=== PATIENT | female | born 1955 ===

== ENCOUNTER → 2019-06-26 12:53 | Outpatient (CLI) | payer OTHER, MEDICAID, SELFPAY ==
--- NOTE | 2019-06-26 | DI.CT.S_ITS ---
PROCEDURE: CT KIDNEY URETER BLADDER (KUB) INDICATIONS: Calculus of kidney TECHNIQUE: Noncontrast 5 mm thick sections acquired from the diaphragms to the symphysis. 5 mm thick coronal and sagittal reformats were then performed. For radiation dose reduction, the following was used: automated exposure control, adjustment of mA and/or kV according to patient size. COMPARISON: [facility], CT, CT KUB, 05/18/2019, 19:55. [facility], CT, CT KUB, 05/26/2019, 13:51. [facility], CR, XR ABDOMEN 1 VIEW, 06/08/2019, 9:02. FINDINGS: Image quality: Excellent. Lung bases: Lung bases are clear. Heart size is normal. Urinary system: Both kidneys are normal in size. No kidney stones. No hydronephrosis or perinephric fat stranding. A double pigtail left ureteral stent remains in normal position after identification of a calculus within the left ureter during CT scanning 05/18/19. Both ureters appear non-dilated throughout their expected courses. Bladder wall thickness is normal; no calcified bladder stones. Other solid organs: Liver is normal in size. Gallbladder appears normal. Pancreas is normal in contours. Spleen is normal in size. No adrenal nodules. Peritoneum and bowel: Unenhanced bowel loops demonstrate normal wall thickness and caliber. No free fluid or air. Nodes and vessels: No retroperitoneal or mesenteric adenopathy by size criteria. Aorta and inferior vena cava are normal in caliber. Abdominal wall: No ventral hernias. Pelvis: No free pelvic fluid. No inguinal hernias or adenopathy. Bones: No suspicious bony lesions. No vertebral body compression fractures. IMPRESSION: Double pigtail left ureteral stent in normal position, a calculus along the course of this stent is not identified. No residual left-sided hydronephrosis or hydroureter is present. The bladder is relatively collapsed at time of CT scanning, a definite intraluminal calculus is not suspected. Dictated by: Wm Do M.D. on 06/26/2019 at 15:31 Approved by: Wm Do M.D. on 06/26/2019 at 15:34
== END ==
PROVIDERS: PCP Family Medicine; Visit Provider Specialist
DX: N20.0 Calculus of kidney (principal); Z96.0 Presence of urogenital implants
CPT/HCPCS: 74176

== ENCOUNTER 2020-07-29 20:58 | Day surgery (SDC) | payer OTHER, MEDICAID, SELFPAY ==
[2020-07-29] VITALS (19 sets, daily range): BP systolic 90–211; BP diastolic 59–116; PULSE 63–89; RESP 10–21; TEMP 36.5–37.3; O2SAT 94–99; BMI 29.2
--- NOTE | 2020-07-29 | DI.RAD.S_ITS ---
PROCEDURE: XR HIP LT 1V INDICATIONS: LEFT HIP RELOCATION TECHNIQUE: Single fluoroscopic hip film acquired. COMPARISON: None. FINDINGS: Bones: Single C-arm film demonstrates total left hip arthroplasty, with hardware components in expected positions. The hip joint appears congruent. The visualized bony structures appear intact. Soft tissues: Unremarkable. IMPRESSION: Single C-arm image demonstrates that a total left hip arthroplasty is not currently dislocated. Dictated by: Roberto Templeton M.D. on 07/30/2020 at 6:31 Approved by: Roberto Templeton M.D. on 07/30/2020 at 6:32
--- NOTE | 2020-07-29 21:18 | P.HP_ITS ---
History of Present Illness History of Present Illness Date Patient Seen: 07/29/20 Time Patient Seen: 21:18 Date of Onset of Symptoms: 07/29/20 Chief complaint: HIP DISLOCATION Narrative: Patient is a 64-year-old woman who had a left total hip replacement 7 years ago by my partner Dr. Kae Pena. She has done well with the hip although she is having increasing knee pain that is leading to giving way of her knees. She had an episode of giving way today and fell suffering a dislocation of the left hip. She was taken to [facility] emergency room where closed reduction was attempted by the emergency room physician. This was unsuccessful. She has been transferred [facility] for my evaluation and treatment for closed reduction under anesthetic. Patient History Medical History (Updated 07/29/20 @ 21:23 by Sascha Henderson MD) Hernia of abdominal wall Surgical History (Updated 07/29/20 @ 21:23 by Sascha Henderson MD) H/O thyroidectomy Hip joint replacement status History of herniorrhaphy History of renal stent Family & Social History Social History: The patient lives alone in [facility] and a recreational vehicle. Tobacco & Substance use: The patient denies tobacco and alcohol use. She does use CBD oil occasionally. Meds Home Medications and Allergies Allergies Allergy/AdvReac Type Severity Reaction Status Date / Time From AMARYL Allergy Severe RASH, Uncoded 09/04/17 11:59 VOMITING METFORMIN Allergy Unknown PROJECTILE Uncoded 09/04/17 11:59 VOMITTING Review of Systems Review of Systems ROS: Yes All systems reviewed with the patient and are negative except as otherwise documented Exam Narrative Exam Narrative: The patient is an obese female lying in her hospital [facility] in obvious discomfort. HEENT examination is normocephalic atraumatic. Chest is clear to auscultation. Cardiac exam is regular rate and rhythm S1-S2 normal no rubs murmurs or gallops. Abdomen is soft diffusely tender with no palpable masses and normal bowel sounds. Extremities examination is notable for the left lower extremity which is held in a flexed position at the hip. There is pain with any motion. Light touch is intact throughout the foot on the left and she has a 2+ dorsalis pedis pulse. Objective Imaging AP pelvis and lateral left hip: My impression: Dislocation in an anterior superior position of the left prosthetic hip. No signs of fractures. Assessment & Plan Assessment & Plan narrative: Patient is a 64-year-old woman with multiple medical problems who has had a stable hip replacement until a fall today. It is now dislocated. A trial of reduction with sedation at the emergency room and [facility] was unsuccessful. She is now at [facility] for attempted relocation by an orthopedist with the assistance of an anesthetic. She has given her permission after discussion the risks benefits and alternatives. Risks discussed included but were not limited to: Fracture, unsuccessful reduction requiring later open reduction, nerve damage, recurrence of the dislocation, and anesthetic complications including stroke, heart attack permanent paralysis and . COVID-19 COVID-19 status: Negative Result date/Date tested (Pos, Neg/Pending): 07/29/20 Time Spent With Patient Time with patient: 15-24 minutes
[2020-07-29] MEDS: LACTATED RINGERS 1,000 ML 42 ML IV (21:23)
--- NOTE | 2020-07-29 21:49 | SUR.OPER ---
Addendum entered by Lilo Torres R.N. 08/01/20 08:46: seat belt at waist Original Note: Supine on padded OR bed, head on pillow, arms secured on padded arm boards at <90 degrees abduction, legs uncrossed, safety belt at thigh, tape over blanket over lower legs.
--- NOTE | 2020-07-29 21:58 | PM.OP.1 ---
Operative Date/Time/Diagnoses Date of procedure: 07/29/20 Time of procedure: 21:58 Pre-op diagnosis: Dislocated left prosthetic hip Post-op diagnosis: same Procedure & Clinicians Procedure: Closed reduction of left prosthetic hip dislocation Same procedure as scheduled: Yes Indications: The patient is a 64-year-old woman who had a total hip replacement 7 years ago. It was stable until she had a fall today. She was unable to arise from her fall and was seen at the [facility] Emergency Room where a dislocation was verified. Attempts at closed reduction in the emergency room were unsuccessful and she was transferred [facility] for definitive management. She agreed to attempted closed reduction under anesthesia after discussion of the risks benefits and alternatives as documented in my history and physical. Surgeon: Sascha Henderson Click Yes if Unassisted: Yes Anesthesia Type: General Operative Notes Findings: Posterior superior dislocation with difficult reduction requiring extreme internal rotation and adduction with significant traction. Closure Type: not applicable Specimen(s): none sent Prosthetic devices, grafts, tissues, transplants, or devices: None Estimated Blood Loss (mL): 0 Blood products transfused: none Procedure in detail: The patient was taken to the operating room and placed on the operating room table in the supine position after the induction of a general anesthetic on her [employer]. The left leg was identified as the dislocated side due to its shortened internally rotated position. I stood on the operating room table and flexed, internally rotated and put traction on the leg. With extensive traction and significant internal rotation and adduction a palpable reduction event occurred. The leg was then brought into extension and abduction, fluoroscopy was used to confirm concentric reduction of the hip. Leg length appeared equal and rotation was neutral after the reduction. The patient was then allowed to awaken from her general anesthetic. She was transferred to the recovery room in good condition having tolerated the procedure well. Complications: none Post-operative Condition: stable Disposition: PACU Plan for aftercare: The patient has no transportation this evening to get home. She will be maintained in the hospital overnight on observation and discharged tomorrow morning.
--- NOTE | 2020-07-29 22:08 | SUR.PHASEI ---
Pt arrived to PACU with oral airway, o2 added. Pt awoke air way out, denied pain. Tolerated ice chips
--- NOTE | 2020-07-29 22:15 | SUR.PHASEI ---
Report called to ELZA Tavarez. Pt transported up on nasal cannula 02 2/l
--- NOTE | 2020-07-29 22:31 | SUR.PHASEI ---
Pt had sudden onset of nausea and vomited 100ml yellow liquid.
--- NOTE | 2020-07-29 22:35 | SUR.PHASEI ---
BP high, Dr. Dee made aware. Labetalol ordered and administered.
[2020-07-29] MEDS: LABETALOL 20 MG/4 ML SYRINGE 10 MG IV ×2 (22:37→22:51)
[2020-07-29] MEDS: HYDRALAZINE 20 MG/ML VIAL 10 MG IV ×2 (23:07→23:21)
--- NOTE | 2020-07-29 23:14 | SUR.PHASEI ---
BP still high after 2 doses of labetalol, Dr. Dee made aware. Pt still denies pain and still with intermittent dry heaves. Hydralazine ordered and administered.
[2020-07-30] VITALS (7 sets, daily range): BP systolic 132–174; BP diastolic 80–102; PULSE 66–84; RESP 18–22; TEMP 36.6–37.3; O2SAT 90–99; BMI 29.2
--- NOTE | 2020-07-30 00:12 | SUR.PHASEI ---
BP better after hydralazine. Pt assisted to BSC to void, urine dark yellow,clear. Intermittent dry heaves persist, Dr. Dee to bedside spoke with pt. Pt transferred up to room 221 when BP under better control. Pt left with [place] and left in stable condition.
[2020-07-30 05:56] LABS: Hematocrit 36.4 % (36-46); Hemoglobin 12.1 g/dL (12.0-16.0)
[2020-07-30 06:06] LABS: Glucose 219 mg/dL (80-110)
[2020-07-30] MEDS: INSULIN ASPART 100 UNIT/ML INSULN PEN SUBCUT (09:14)
[2020-07-30] MEDS: METOPROLOL ER 50 MG TABLET 100 MG PO (09:14)
[2020-07-30] MEDS: LEVOTHYROXINE 100 MCG TABLET 250 MCG PO (09:15)
[2020-07-30] MEDS: DOCUSATE 100 MG CAPSULE PO (09:17)
[2020-07-30] MEDS: PANTOPRAZOLE 20 MG TABLET PO (09:17)
[2020-07-30] MEDS: ASPIRIN EC 81 MG TABLET PO (09:17)
--- NOTE | 2020-07-30 09:17 | PT.IIE ---
Surgery Performed Operation Date: 07/29/20 07:00 <No data on this case meets the specified criteria> Operation Date: 07/29/20 21:15 Actual Procedures p Closed Reduction Dislocated Hip(Left) - Sascha Henderson MD Surgical History (Last Updated 07/29/20 @ 21:23 by Sascha Henderson MD) H/O thyroidectomy Hip joint replacement status History of herniorrhaphy History of renal stent Medical History (Last Updated 07/29/20 @ 21:23 by Sascha Henderson MD) Hernia of abdominal wall Physical Therapy Inpatient Evaluation/Re-Eval M1 PT/OT-IP Prior Functional Status Start: 07/30/20 11:47 Freq: NEEDED Status: Active Protocol: Document 07/30/20 09:17 AB (Rec: 07/30/20 12:07 [email or web address]) Medical Review Prior Functional Status Medical History Reviewed Yes Communication able to make needs known Mobility and Gait pt stated that she is independent with all mobilities and ambulation without AD; stated that B knees are needing a replacement and tends to give out on her Prior Functional Level (Other details) pt has L SAYRA 7 year ago but had a fall and dislocated her hip. pt s/p L hip reduction after dislocation and per pt due to L knee giving out from her. Social History Household Members none Living Arrangements RV Number of Floors (Floors) One Floor Number of Stairs To Enter/Railing? 3 steps without rails pt stated that FWW will not fit inside the RV Home Environment Standard Height Toilet,Walk in Shower Home Equipment Front Wheel Walker,Straight Cane M2 PT-IP Current Condition Start: 07/30/20 11:47 Freq: NEEDED Status: Active Protocol: Document 07/30/20 09:17 AB (Rec: 07/30/20 12:07 AB [email or web address]) Physical Therapy Current Condition Current Condition Evaluation Date 07/30/20 Treatment Diagnosis s/p close reduction of L prosthetic hip dislocation; difficulty in walking Onset Date 07/29/20 Precautions Posterior Hip Precautions No Hip Flexion > 90 degrees,No Hip Internal Rotation,No Hip Adduction Weight Bearing Status Weight Bearing Status Weight Bear as Tolerated Allowed Weight Bearing Amount (enter % LLE WBAT or #) (%) M3 PT-IP Subjective Start: 07/30/20 11:47 Freq: NEEDED Status: Active Protocol: Document 07/30/20 09:17 AB (Rec: 07/30/20 12:07 AB [id number]) Subjective Physical Therapy Visit Type Type Initial Evaluation Visit Start Time 09:17 Visit Stop Time 09:54 Total Visit Minutes 37 Number of ACCOUNT SERVICES COORDINATOR Visits 0 Physical Therapy Visit Comments Patient Comments pt is agreeable to do PT Therapy Pain Assessment Pain When Pain Assessed At Rest Pain Present Pain Present Pain Reported Location l hip Intensity 5 Scale Used Numeric (0 - 10) Pain Management Techniques Distraction,Modification of Treatment,Re-positioning, Timing of Activity with Medications M4 PT-IP Mobility and Gait Start: 07/30/20 11:47 Freq: NEEDED Status: Active Protocol: Document 07/30/20 09:17 AB (Rec: 07/30/20 12:07 [email or web address]) PT-Bed Mobility Assessment Supine to Sit Supine to Sit Independent Sit to Supine Sit to Supine Standby Assistance PT-Transfer Assessment Sit to and From Stand Sit to and from Stand Contact Guard Assistance Equipment Transfer Assistive Device None,Gait Belt Orthotic/Prosthetic Devices or Brace: No Transfers Transfer Destination Chair Transfer Technique ambulated Transfer Ability Level of Assist Minimal Assistance,1 Person Assistance,Use of Upper Extremities Comments Mobility Comments educated pt on posterior hip precautions. completed supine to sit SBA. pt was able to sit on EOB SBA. completed sit to stand CGA. pt refusing to use FWW/SPC for ambulation. pt stated that FWW will not fit in the house and that terrain to get into the house is muddy and uneven and there is not way for her to use a FWW. ambulated in room without AD min A requiring PROCESS MAINTENANCE TECHNICIAN for safety and pt holding on to wall for support. pt stated that she has a lot of things to can hold on to at her house and will not need to use an AD. assessed pt with FWW and completed SBA ~ 20 ft. pt continues to refuse. assessed ambulation using SPC and completed ~ 30 ft CGA. pt is more amenable to use SPC. completed up/down platform step using SPC min A and cues. Pt requested to go back to bed . completed sit to supine SBA. positioned pt on bed. call light and table placed wtihin reach. Gait Assessment Gait Gait Assistance Required: Contact Guard Assist Distance (Feet) 30 Able to Maintain Weight Bearing Status Yes During Gait Assistive Devices Assistive Device Gait Belt,Straight Cane Orthotic/Prosthetic Devices or Brace: No Gait Deviations General Gait Pattern Antalgic,Decreased Stride Length,Decreased Feet Clearance,Step-to Gait Factors Limiting Gait Function Factors Limiting Gait Function Decreased Activity Tolerance, Decreased Strength,Limited Range of Motion,Pain,Poor Balance,Poor Safety Awareness Comments Gait Comments pls refer to mobility section for details Stair Climbing Assessment Evaluation Level of Assist On Stairs Minimal Assistance Devices Stair Climbing Assistive Devices Straight Cane Technique/Endurance Stair Climbing Direction Ascend and Descend Stair Climbing Technique Step to Step Number of Steps Climbed 1 Query Text: Stair Climbing Set # Repetitions (reps) 2 PT-Balance Assessment Sitting Balance and Reactions Static Sitting Balance Ability Good Dynamic Sitting Balance Ability Good Standing Balance and Reactions Static Standing Balance Ability Fair Dynamic Standing Balance Ability Fair Device Used using SPC M5 PT-IP Objective Assessments Start: 07/30/20 11:47 Freq: NEEDED Status: Active Protocol: Document 07/30/20 09:17 AB (Rec: 07/30/20 12:07 [email or web address]) Orientation Orientation/Cognition Level of Alertness Alert Orientation Name,Place,Situation Language Function Ability No Deficits Noted Safety Awareness Decreased Safety Awareness Memory Description Short Term Impaired Gross Range of Motion Lower Extremity ROM Assessment Within Functional Limits Strength Lower Extremity Strength Assessment Bilaterally Impaired Hip RLE: 4-/5 LLE 3+/5 Knee 3+/5 Muscle Tone Muscle Tone WNL Yes M6 PT-IP Treatment Start: 07/30/20 11:47 Freq: NEEDED Status: Active Protocol: Document 07/30/20 09:17 AB (Rec: 07/30/20 12:07 [email or web address]) Physical Therapy Treatment Exercises Exercises Heel Slides Education Education Provided Precautions,Weight Bearing Status,Post-Op Packet,Safety M7 PT-IP Assessment and Plan Start: 07/30/20 11:47 Freq: NEEDED Status: Active Protocol: Document 07/30/20 09:17 AB (Rec: 07/30/20 12:07 AB [email or web address]) PT Summary Assessment and Plan Potential Rehabilitation Potential Good Status of Condition at Evaluation Stable Summary Impairments Pain,ROM,Strength,Balance, Coordination,Sensation,Tone, Cognition,Bed Mobility, Transfers,Gait,Activity Tolerance Assessment Summary pt requiring SBA to CGA with ambulation and min A for stair climbing using SPC. pt lives alone and will not have any assistance at home. pt tends to directs her own care despite education provided regarding safety. pt refused to use FWW but agreed to use SPC. pt stated that B knees tend to give out and she is due for TKA. informed pt regarding benefits of continued PT upon d/c to LE strengthening for fall prevention and as preparation for eventual TKA. pt understood. Goals Bed Mobility Goal Independent Transfer Goal Independent,Cane Gait Goal Independent,Cane Gait Distance 150 Other Goals improve ambulation without AD 200 ft SBA up/down 3 steps SPC/without AD SBA Days to Meet Goals 5 Frequency of Treatment Frequency Of Treatment Twice a Day Treatment Plan Physical Therapy Treatment Plan Bed Mobility Training,Transfer Training,Gait Training, Therapeutic Exercise,Balance Retraining,Post Op Education, Discharge Planning,Hot or Cold Pack,Neuromuscular Re-ed, Coordination Retraining,Manual Therapy Precautions Posterior Hip Precautions No Hip Flexion > 90 degrees,No Hip Internal Rotation,No Hip Adduction Recommendations To Nursing Amount of Assist Needed 1 Person Assist Discharge Recommendations PT Discharge Recommendations Home with Assistance,Home Health Transportation Needs at Discharge Private Vehicle
[2020-07-30] MEDS: ACETAMINOPHEN 325 MG TABLET 650 MG PO (09:18)
--- NOTE | 2020-07-30 09:23 | CM.DANOTE ---
Patient is a 64 year old female who was admitted on 07/29/20 for Hip Dislocation. Pt has [employer] and [employer] for insurance and her PCP is Rito Delacruz at [facility]. EMR was reviewed. Per Saumya GORDILLO, pt had hip replacement 7 years ago and recently fell and dislocated her hip. Saumya GORDILLO was able to fix pt's hip without need for surgery and will have PT assess pt this morning with plan of d/c back home today. SW met bedside with pt and explained role and she confirms that she lives alone in [place] ([address] [place] [address]) in an RV in the [facility] but her mailing address is [place]. Pt is independent at baseline and has local supportive son Pepe in [place]. Pt confirms she is agreeable with d/c home today but does not have anyone to transport her home but does have medicaid transport benefits. SW called [employer] and confirmed pt has transportation benefits and scheduled 1230 transport via taxi home today and confirmed with Saumya GORDILLO that no new prescriptions at d/c and therefore no pharmacy stops needed. SW updated RN and pt is agreeable with d/c plan today. Plan: Patient to d/c back home to RV alone via [employer] Medicaid taxi at 1230. KARRIE Goodman Discharge Planning/Care Management CM Discharge Assessment Start: 07/30/20 09:21 Freq: Status: Active Protocol: Document 07/30/20 09:21 BF (Rec: 07/30/20 09:23 BF [id number]) Discharge Planning Assessment Assigned Motion Picture Photographer KARRIE Morris DPOA/Assigned Designee Name informally neri Cantu Contact Information [phone] Advance Directives? No Advance Directives on File No History Provided By Patient,Medical Record Has Patient been admitted in last 30 No days? Prior Living Arrangements RV Household Members none Type of transporation used prior to Medicaid Transport admit Independent with ADL's Yes Is patient alert and oriented? Yes Caregiver for Another No Barriers to Discharge No Discharge Plan Home Transportation Arrangement Pt needs [employer] Medicaid taxi for d/c Referrals Initiated None needed Whiteboard Updated in Patient Room with Yes name and ext. # of Motion Picture Photographer Review Status In Process Please Provide Date Initial DC 07/30/20 Assessment Was Performed Next Review Type Continued Stay Review
--- NOTE | 2020-07-30 09:31 | P.DS_ITS ---
History of Present Illness History of Present Illness Date Patient Seen: 07/30/20 Time Patient Seen: 09:31 Date of Onset of Symptoms: 07/29/20 Chief complaint: HIP DISLOCATION Narrative: Patient is a 64-year-old woman who had a left total hip replacement 7 years ago by my partner Dr. Kae Pena. She has done well with the hip although she is having increasing knee pain that is leading to giving way of her knees. She had an episode of giving way today and fell suffering a dislocation of the left hip. She was taken to [facility] emergency room where closed reduction was attempted by the emergency room physician. This was unsuccessful. She has been transferred [facility] for my evaluation and treatment for closed reduction under anesthetic. Discharge Providers Provider Discharge Date: 07/30/20 Primary care physician: Rito Delacruz MD Consults: 07/29/20 21:17 Consult to Anesthesiology Routine Comment: Consulting Provider: Anesthesiologist Reason for consultation: Post operative pain managment 07/29/20 21:31 Consult to Respiratory Therapy Evaluate & Treat Comment: Physician Instructions: Evaluate and treat 07/30/20 00:08 Consult to Discharge Planning Routine Comment: Consult to Discharge Planning Routine Comment: may need assistance with transport to [place] Consult to Physical Therapy Evaluate & Treat Comment: Physician Instructions: post op SAYRA protocol Consult to Respiratory Therapy Evaluate & Treat Comment: Physician Instructions: Evaluate and treat Discharge provider: Sascha Henderson MD Summary Hospital Course Discharge Diagnosis: Dislocation of left prosthetic hip Hospital Course: Patient was admitted to the operating room where she underwent a closed reduction of the left hip dislocation. This required significant traction but was atraumatic. Radiographs confirmed concentric location. It was late at night and there was no transportation available to the patient to return home so she was admitted overnight for observation. She is to see physical therapy this morning and then be discharged. Status at Discharge Cognitive/behavioral status at discharge: oriented Functional status at discharge: independent ambulation Overall status at discharge: patient is progressing back to baseline Time Spent with Patient Time spent: Less than 30 minutes Exam Vital Signs (past 8 hours): - 07/30/20 02:00 07/30/20 03:11 07/30/20 08:14 Temperature 98.4 F 99.1 F Pulse Rate 70 66 80 Respiratory Rate 19 18 22 Blood Pressure 132/82 136/85 164/102 H Pulse Oximetry 90 L 92 94 Oxygen Delivery Method Room Air Oxygen Flow Rate 0 Narrative Exam Narrative: Left leg length and rotation appear appropriate. Light touch is intact in the left foot. Dorsiflexion and plantar flexion of the toes and ankle are intact. Objective Labs Result Diagrams: 07/30/20 05:20 Labs: Laboratory Results - last 24 hr 07/30/20 07/30/20 05:20 05:20 Hgb 12.1 Hct 36.4 Glucose 219 H PFSH Medical History (Updated 07/29/20 @ 21:23 by Sascha Henderson MD) Hernia of abdominal wall Surgical History (Updated 07/29/20 @ 21:23 by Sascha Henderson MD) H/O thyroidectomy Hip joint replacement status History of herniorrhaphy History of renal stent Social History household members: none Discharge Assessment & Plan Assessment and Plan Assessment: Stable after reduction of left prosthetic hip dislocation. The patient has significant knee osteoarthritis. This will eventually require evaluation as an outpatient. Plan of Treatment: Discharge to home after a physical therapy session this morning. We have obtained a cab voucher for her to get home. Follow-up in 10-14 days as needed with Dr. Kae Pena. The patient is in minimal pain and we will expect her to treat her pain with acetaminophen. I suggested the use of 81 mg aspirin b.i.d. for DVT prophylaxis. Discharge Plan Discharge Plan Patient Disposition: Home Discharge orders & Medications Discharge Orders: Discharge (Order); Ordered 07/30/20 Ordered By: Sascha Henderson Prescriptions: New acetaminophen 325 mg Tablet 650 mg PO TID PRN (Reason: Pain) 30 Days RF: 0 aspirin 81 mg Tablet,Delayed Release (Dr/Ec) 81 mg PO BID 30 Days Qty: 60 RF: 0 Continued atorvastatin [Lipitor] 20 mg Tablet 20 mg PO BEDTIME RF: 0 metoprolol succinate 100 mg Tablet Extended Release 24 Hr 100 mg PO DAILY RF: 0 pantoprazole [Protonix] 20 mg Tablet,Delayed Release (Dr/Ec) 20 mg PO DAILY RF: 0 levothyroxine 200 mcg Tablet 250 mcg PO DAILY RF: 0 Follow up/Referrals: Rito Delacruz MD [Primary Care Provider] - Sascha Henderson MD [Physician] - 2 Weeks (Follow up with Kae Pena MD in 10-14 days if hip pain continues or call for new appointment for knees.) Diet/Activity/Treatments Diet: Diet as Tolerated and Carb-consistent/Diabetic Activity: Follow posterior hip precautions. You may bear weight as tolerated. Cold/Heat Therapy: Apply ice to the left hip for 15 minutes of every hour as needed for pain control. Visit Report/Discharge Packet Instructions: DI for Hip Replacement Stand Alone Forms: Surgery Discharge Discharge Data Primary Care Provider: Rito Delacruz Attending Provider: Sascha Henderson Quality VTE Deep Vein Thrombosis/Pulmonary Embolism Present on Admission: No
--- NOTE | 2020-07-30 12:28 | PC.NURSE ---
Pt is dressed and ready for discharge home via [employer]. Pt lives in [place]. She states she will be contacting her children to check in on her. Went over d/c instructions with Pt-discussed d/c meds, time of last dose, reviewed posterior hip precautions to prevent dislocation. Encouraged Pt to drink fluids to prevent constipation or dehydration. Pt to follow up with Dr. Henderson in 2 weeks. Pt denies further questions and will be taken out via w/c by [facility] when medicaid transport arrives.
== END 2020-07-30 14:36 | disposition home or self-care (01) ==
LOC: OR 21:19 → AC 21:54
PROVIDERS: PCP Family Medicine; Referring Provider Orthopaedic Surgery; Visit Provider Orthopaedic Surgery
PROC: (CPT 27266; principal; 2020-07-29 21:15)
DX: T84.021A Dislocation of internal left hip prosthesis, initial encounter (principal); W18.39XA Other fall on same level, initial encounter; M17.10 Unilateral primary osteoarthritis, unspecified knee; E11.9 Type 2 diabetes mellitus without complications; E03.9 Hypothyroidism, unspecified; I10 Essential (primary) hypertension; Z79.4 Long term (current) use of insulin
CPT/HCPCS: 27266; 36415; 73501; 76000; 82947; 82962; 85014; 85018; 97161; J0330; J0360; J2250; J2704; J3010

== ENCOUNTER → 2021-04-17 08:16 | Outpatient (CLI) | payer OTHER, MEDICAID, SELFPAY ==
[2020-07-30 00:40] VITALS: BMI 29.2
--- NOTE | 2021-04-17 | DI.NM.S_ITS ---
PROCEDURE: NM BONE SCAN WHOLE BODY RADIOPHARMACEUTICAL: 22 mCi Tc-99m MDP IV. INDICATIONS: Pain in left hip TECHNIQUE: Delayed whole-body scintigrams were obtained approximately 3-4 hours after intravenous injection of radiotracer. Anterior and posterior views were acquired from vertex to feet. Additional left and right oblique views of the pelvis were obtained. COMPARISON: Outside Film, CT, CT IVP, 02/14/2021, 9:23. FINDINGS: Physiologic uptake is noted within the kidneys and bladder. There is increased uptake within the shoulders, sternoclavicular joints as well as knees and feet most consistent with degenerative change. Increased uptake is scattered within the cervical, thoracic and lumbar spine. Photopenia is noted within the left hip consistent with arthroplasty. IMPRESSION: Multifocal areas of increased uptake as above suggestive of degenerative change. Dictated by: Dorene Hendrix M.D. on 04/17/2021 at 14:48 Approved by: Dorene Hendrix M.D. on 04/17/2021 at 14:50
== END ==
PROVIDERS: PCP Family Medicine; Referring Provider Orthopaedic Surgery; Visit Provider Orthopaedic Surgery
DX: M25.552 Pain in left hip (principal)
CPT/HCPCS: 78306; A9503